=== PATIENT | male | born 1945 | race Caucasian/White ===

== ENCOUNTER → 2018-04-13 | Outpatient (CLI) | payer MEDICARE, OTHER ==
[~2018-04-13] MED LIST: ALIS1TAB4 PO; ALLO100T30 PO; AMLO-150 PO; CARB1TAB47 PO; CARV3.1212 PO; COLE625T12 PO; ECOTRIN PO; FISH1CAP PO; FLUT1AER INH; FLUT1DIS IH; IRON PO; LISI1TAB7 PO; LOVA40TA2 PO; PIOG45TA20 PO; REGADENOSON 0.4 MG/5 ML SYRINGE ONE; SITA1TAB5 PO; TORS20TA2 PO; TRAM50TA2 PO; [UNRECOGNIZED DRUG - OTHER] PO
== END | disposition home or self-care (01) ==
LOC: CFH 12:09
PROVIDERS: ATTEND Internal Medicine Cardiovascular Disease
DX: I49.3 Ventricular premature depolarization (principal); R06.02 Shortness of breath
CPT/HCPCS: 78452; 93017; A9502; J2785

== ENCOUNTER 2020-08-12 13:44 | Observation (INO) | payer MEDICARE, OTHER ==
[~2020-08-12] VITALS: Ht 190.5 cm; Wt 113.6 kg
[~2020-08-12 13:44] MED LIST changes: +ASPI81TA45 PO; +CALC0.25 PO; +CARV6.252 PO; +DOXA1TAB2 PO; +ERGO500017 PO; +FERR324T23 PO; +HYDR-2214 PO; +HYDR-3343 PO; +LACT1CAP35 PO; +LISI1TAB20 PO; -LISI1TAB7 PO; +MAGN500C9 PO; +OMEG-170 PO; +Oxygen INH; +PRIM50TA34 PO; -REGADENOSON 0.4 MG/5 ML SYRINGE ONE; +TORS10TA4 PO
--- NOTE | 2020-08-12 14:12 | NUR ---
PT BROUGHT BACK TO ROOM FROM TRIAGE VIA WHEELCHAIR. PT CO 4/10 STERNAL CP THAT RADIATES INTO NECK. PT STATED PAIN WAS A SUDDEN ONSET AT 0900 THIS MORNING. PT CO SOME SOB, BUT ALSO HAS COPD SO THAT IS NORMAL FOR HIM. PT DENIES N/V, DIZZINESS OR FEVER.
[2020-08-12] MEDS ORDERED: NITROGLYCERIN SINGLE TAB 0.4 MG SL PRN (14:30)
[2020-08-12] MEDS ORDERED: ASPIRIN 81 MG TABLET CHEW PO ONE (14:30)
[2020-08-12] MEDS ORDERED: NITROGLYCERIN SINGLE TAB 0.4 MG SL ONE (14:41)
[2020-08-12] MEDS ORDERED: ASPIRIN 81 MG TABLET CHEW ONE (14:42)
--- NOTE | 2020-08-12 15:00 | NUR ---
PT RESTING IN GURNEY COMFORTABLY. PT STATED HIS CP IS A 3/10, JUST FEELS TIGHT. PT REFUSED ANOTHER DOSE OF NITRO. PT STATED THAT HE FEELS LIKE THE PAIN IS COMING FROM HIS LUNGS.
[2020-08-12 15:16] LABS: BASOPHILS % (AUTO) 0 % (0-1); EOSINOPHILS % (AUTO) 0 % (1-7); LYMPHOCYTES % (AUTO) 8 % (22-44); MEAN CORPUSCULAR HEMOGLOBIN 30.9 pg (27.5-34.5); MEAN CORPUSCULAR HGB CONC 32.5 g/dL (33.2-36.2); MEAN PLATELET VOLUME 9.1 fL (7.4-10.4); MONOCYTES % (AUTO) 13 % (2-9); NEUTROPHILS % (AUTO) 78 % (42-75); PLATELET COUNT 144 x10^3/uL (130-400); RED BLOOD COUNT 3.35 x10^6/uL (4.38-5.82); RED CELL DISTRIBUTION WIDTH 16.9 % (9.4-14.8)
[2020-08-12 15:17] LABS: ALBUMIN 3.3 g/dL (3.4-5.0); ANION GAP 5 mmol/L (5-15); CALCIUM 8.2 mg/dL (8.5-10.1); CHLORIDE 114 mmol/L (98-107)
[2020-08-12 15:23] LABS: ALANINE AMINOTRANSFERASE 9 U/L (12-78); ALKALINE PHOSPHATASE 136 U/L (45-117); BILIRUBIN,TOTAL 0.4 mg/dL (0.2-1.0); CREATININE 3.64 mg/dL (0.7-1.3); TOTAL PROTEIN 6.8 g/dL (6.4-8.2); TROPONIN I < 0.015 ng/mL (0.000-0.045)
--- NOTE | 2020-08-12 16:00 | NUR ---
PT RESTING IN GURNEY COMFORTABLY. CALL LIGHT WITHIN REACH. FAMILY AT BEDSIDE
--- NOTE | 2020-08-12 17:00 | NUR ---
PT RESTING COMFORTABLY IN GUENRY. PT UP FOR RECHECK
[2020-08-12] MEDS ORDERED: INSULIN REGULAR 100 UNITS/ML, 3ML VIAL IVPush ONE (18:00)
[2020-08-12] MEDS ORDERED: DEXTROSE 50%, 50ML SYRINGE IVPush ONE (18:00)
[2020-08-12] MEDS ORDERED: CALCIUM CHLORIDE 10%, 10ML SYR IVPush ONE (18:00)
[2020-08-12] MEDS ORDERED: INSULIN SINGLE DOSE, ER ONE (18:02)
[2020-08-12] MEDS ORDERED: CALCIUM CHLORIDE 10%, 10ML SYR ONE (18:02)
[2020-08-12] MEDS ORDERED: DEXTROSE 50%, 50ML SYRINGE ONE (18:02)
--- NOTE | 2020-08-12 18:20 | NUR ---
REPORT GIVEN TO LUZ TARIQ.
[2020-08-12 18:38] VITALS: BP 176/75
[2020-08-12] MEDS ORDERED: ACETAMINOPHEN 325 MG TABLET PO PRN (20:00)
[2020-08-12] MEDS ORDERED: TEMPLATE NON-FORMULARY MED. ([Oxygen] 2 L) INH SCH (20:00)
[2020-08-12] MEDS ORDERED: hydrALAzine 20 MG/ML, 1ML IVPush PRN (20:00)
[2020-08-12] MEDS ORDERED: CALCITRIOL 0.25 MCG CAPSULE PO SCH (20:00)
[2020-08-12] MEDS ORDERED: NITROGLYCERIN 0.4 MG BOTTLE (25 TABS) SL PRN (20:00)
[2020-08-12] MEDS: TORSEMIDE 5 MG TAB PO SCH (20:00)
[2020-08-12] MEDS ORDERED: morphine SULFATE 10 MG/ML, 1ML IVPush PRN (20:00)
[2020-08-12] MEDS ORDERED: ERGOCALCIFEROL 50,000 UNIT CAPSULE PO SCH (20:00)
[2020-08-12] MEDS ORDERED: ONDANSETRON ODT 4 MG PO PRN (20:00)
[2020-08-12] MEDS: COLESEVELAM 625 MG TABLET PO SCH (20:58)
[2020-08-12] MEDS: HEPARIN 5,000 UNITS/ML, 1ML SQ SCH (20:58)
[2020-08-12] MEDS ORDERED: DOXAZOSIN 1MG TABLET PO SCH (21:00)
[2020-08-12] MEDS ORDERED: LOVASTATIN 40 MG TABLET PO SCH (21:00)
[2020-08-12] MEDS ORDERED: CARBIDOPA/LEVODOPA 25 MG/100 MG TABLET PO SCH (21:00)
[2020-08-12] MEDS ORDERED: OMEGA-3/FISH OIL CAPSULE PO SCH (21:00)
[2020-08-12] MEDS: PRIMIDONE 50 MG TABLET PO SCH (21:00)
[2020-08-12] MEDS: CARVEDILOL 6.25 MG TABLET PO SCH (21:00)
[2020-08-12] MEDS ORDERED: ASPIRIN 81 MG TABLET EC PO SCH (21:00)
[2020-08-12] MEDS: ALLOPURINOL 100 MG TABLET PO SCH (21:02)
[2020-08-12] MEDS: LACTOBACILLUS CHEW TABLET PO SCH (21:02)
[2020-08-12 21:09] LABS: TROPONIN I < 0.015 ng/mL (0.000-0.045)
[2020-08-13 01:24] VITALS: BP 150/63
[2020-08-13 03:14] LABS: ANION GAP 6 mmol/L (5-15); CALCIUM 7.9 mg/dL (8.5-10.1); CHLORIDE 115 mmol/L (98-107); CREATININE 3.47 mg/dL (0.7-1.3)
[2020-08-13 03:19] LABS: TROPONIN I < 0.015 ng/mL (0.000-0.045)
[2020-08-13] MEDS: HEPARIN 5,000 UNITS/ML, 1ML SQ SCH ×2 (04:50→10:11)
[2020-08-13] MEDS ORDERED: CARBIDOPA/LEVODOPA 25 MG/100 MG TABLET PO SCH ×2 (08:00→14:00)
[2020-08-13 08:05] VITALS: BP 174/71
[2020-08-13] MEDS ORDERED: REGADENOSON 0.4 MG/5 ML SYRINGE ONE (08:50)
[2020-08-13] MEDS ORDERED: FERROUS GLUCONATE 324 MG TABLET PO SCH (09:00)
[2020-08-13] MEDS ORDERED: MAGNESIUM OXIDE 400 MG TABLET PO SCH (09:00)
[2020-08-13] MEDS: COLESEVELAM 625 MG TABLET PO SCH (10:11)
[2020-08-13] MEDS: TORSEMIDE 5 MG TAB PO SCH (10:11)
[2020-08-13] MEDS: CARVEDILOL 6.25 MG TABLET PO SCH (10:12)
[2020-08-13] MEDS: ALLOPURINOL 100 MG TABLET PO SCH (10:12)
[2020-08-13] MEDS: PRIMIDONE 50 MG TABLET PO SCH (10:12)
[2020-08-13] MEDS: LACTOBACILLUS CHEW TABLET PO SCH (10:13)
[2020-08-13 12:54] VITALS: BP 123/59
== END 2020-08-13 17:44 | disposition home or self-care (01) ==
LOC: ED 14:16 → 5SO 17:37 → INTOOBSV 17:37
PROVIDERS: ADMIT Hospitalist; ATTEND Hospitalist
DX: I20.0 Unstable angina (principal); I13.2 Hypertensive heart and chronic kidney disease with heart failure and with stage 5 chronic kidney disease, or end stage renal disease; E11.22 Type 2 diabetes mellitus with diabetic chronic kidney disease; I50.32 Chronic diastolic (congestive) heart failure; N18.5 Chronic kidney disease, stage 5; D63.1 Anemia in chronic kidney disease; E87.5 Hyperkalemia; R25.1 Tremor, unspecified; E78.5 Hyperlipidemia, unspecified; I07.1 Rheumatic tricuspid insufficiency; J44.9 Chronic obstructive pulmonary disease, unspecified; Z79.82 Long term (current) use of aspirin; Z79.899 Other long term (current) drug therapy; Z87.891 Personal history of nicotine dependence
CPT/HCPCS: 36415; 71045; 78452; 80048; 80053; 84132; 84484; 85025; 93005; 93017; 93306; 96372; 96374; 96375; 99285; A9502; G0378; J1644; J1815; J2785

== ENCOUNTER 2020-09-15 12:09 | Emergency (ER) | payer MEDICARE, OTHER ==
[~2020-09-15] VITALS: Ht 190.5 cm; Wt 105.1 kg
--- NOTE | 2020-09-15 12:31 | NUR ---
FIRST CONTACT: PT STATES THAT HE HAS BEEN HAVING FREQUENT HYPOTENSION LATELY, LOW 42/20. PT STATES HE IS A DIALYSIS PT AND WAITED TO BE SEEN FOR HYPOTENSION UNTIL TODAY. PT WITH STEADY GAIT TO ROOM. POSTIONED TO COMFORT. ATTACHED TO MONITORS. VSS. CONROY.
--- NOTE | 2020-09-15 13:41 | NUR ---
MARY INGRAM TO BEDSIDE FOR EVALUATION. VSS. MARYCARMEN. PT RESTING COMFORTABLY IN BED.
[2020-09-15 14:21] LABS: ALANINE AMINOTRANSFERASE 10 U/L (12-78); ALBUMIN 3.7 g/dL (3.4-5.0); CHLORIDE 102 mmol/L (98-107); CREATININE 3.12 mg/dL (0.7-1.3)
[2020-09-15 14:22] LABS: BASOPHILS % (AUTO) 1 % (0-1); EOSINOPHILS % (AUTO) 1 % (1-7); LYMPHOCYTES % (AUTO) 15 % (22-44); MEAN CORPUSCULAR HEMOGLOBIN 30.1 pg (27.5-34.5); MEAN CORPUSCULAR HGB CONC 32.5 g/dL (33.2-36.2); MEAN PLATELET VOLUME 8.7 fL (7.4-10.4); MONOCYTES % (AUTO) 14 % (2-9); NEUTROPHILS % (AUTO) 70 % (42-75); PLATELET COUNT 152 x10^3/uL (130-400); RED BLOOD COUNT 3.41 x10^6/uL (4.38-5.82); RED CELL DISTRIBUTION WIDTH 18.1 % (9.4-14.8)
[2020-09-15 14:23] LABS: ALKALINE PHOSPHATASE 135 U/L (45-117); BILIRUBIN,TOTAL 0.4 mg/dL (0.2-1.0); TOTAL PROTEIN 6.8 g/dL (6.4-8.2)
[2020-09-15 14:37] LABS: ANION GAP 5 mmol/L (5-15)
--- NOTE | 2020-09-15 15:15 | NUR ---
DR. WORRELL AT BEDSIDE. VSS. CONROY
[2020-09-15 15:35] VITALS: BP 159/64
== END 2020-09-15 15:37 | disposition home or self-care (01) ==
LOC: ED 12:56
DX: I95.9 Hypotension, unspecified (principal); R94.31 Abnormal electrocardiogram [ECG] [EKG]; I10 Essential (primary) hypertension; E78.5 Hyperlipidemia, unspecified; E11.9 Type 2 diabetes mellitus without complications
CPT/HCPCS: 36415; 71045; 80053; 85025; 93005; 99285